=== PATIENT | female | born 2000 | race African-American/Black ===

== ENCOUNTER 2022-05-04 20:04 | Emergency (ER) | payer OTHER, SELFPAY ==
[2022-05-04] MEDS ORDERED: Metoclopramide HCl 10 MG/2 ML VIAL ONE (21:00)
[2022-05-04] MEDS ORDERED: diphenhydrAMINE 50 MG/ML VIAL ONE (21:01)
[2022-05-04] MEDS ORDERED: Ketorolac Tromethamine 30 MG/ML VIAL ONE (21:01)
== END 2022-05-04 22:20 | disposition home or self-care (01) ==
LOC: CSHERS 20:04
DX: G43.919 Migraine, unspecified, intractable, without status migrainosus (principal)
CPT/HCPCS: 96365; 96375; J1200; J1885; J2765